=== PATIENT | male | born 1965 | race African-American/Black ===

== ENCOUNTER 2017-08-19 13:40 | Inpatient (IN) | payer OTHER ==
[2017-08-19 14:02] VITALS: BMI 33.4
--- NOTE | 2017-08-19 16:37 | HP ---
CIWA Score - CIWA Score Nausea/Vomitin (Nausea, Vomitted twice) Muscle Tremors: 4-Moderate,w/Arms Extend Anxiety: 4-Mod. Anxious/Guarded Agitation: 4-Moderately Restless Paroxysmal Sweats: 3 Orientation: 0-Oriented Tacttile Disturbances: 0-None Auditory Disturbances: 0-None Visual Disturbances: 0-None Headache: 4-Moderately Severe CIWA-Ar Total Score: 25 Admission ROS S - HPI Chief Complaint: Alcohol Withdrawal Allergies/Adverse Reactions: Allergies Allergy/AdvReac Type Severity Reaction Status Date / Time No Known Allergies Allergy Verified 08/19/17 17:03 History of Present Illness: 51 years old AA male with a long hx of alcohol dependence is admitted for alcohol detox. Patient has been in previous detox, last in 04/2015. Reports 5 years of sobriety. Exam Limitations: No Limitations - Ebola screening Have you traveled outside of the country in the last 21 days: No Have you had contact with anyone from an Ebola affected area: No Have you been sick,other than usual withdrawal symptoms: No Do you have a fever: No - Review of Systems Constitutional: Loss of Appetite, Night Sweats, Changes in sleep, Other (fatigue ) EENT: reports: No Symptoms Reported Respiratory: reports: No Symptoms reported Cardiac: reports: No Symptoms Reported GI: reports: Diarrhea, Nausea, Poor Appetite, Poor Fluid Intake, Vomiting : reports: No Symptoms Reported Musculoskeletal: reports: No Symptoms Reported Neuro: reports: Headache, Tingling, Tremors Endocrine: reports: Flushing, Increased Thirst Hematology: reports: No Symptoms Reported Psychiatric: reports: Orientated x3, Anxious Other Systems: Reviewed and Negative Patient History - Patient Medical History Hx Anemia: No Hx Asthma: No Hx Chronic Obstructive Pulmonary Disease (COPD): No Hx Cancer: No Hx Cardiac Disorders: No Hx Congestive Heart Failure: No Hx Hypertension: Yes (On meds ( lotrel)) Hx Hypercholesterolemia: Yes (On meds (Zocor)) HX Cerebrovascular Accident: No Hx Seizures: No Hx Dementia: No Hx Diabetes: No Hx Gastrointestinal Disorders: No Hx Liver Disease: No Hx Genitourinary Disorders: No Hx Sexually Transmitted Disorders: No Hx Renal Disease (ESRD): No Hx Thyroid Disease: No Hx Human Immunodeficiency Virus (HIV): No (Negative 2015) Hx Hepatitis C: No Hx Depression: No Hx Suicide Attempt: No Hx Bipolar Disorder: No Hx Schizophrenia: No - Patient Surgical History Past Surgical History: No - PPD History Previous Implant?: No (+ PPD, ) PPD to be Administered?: No - Reproductive History Patient is a Female of Child Bearing Age (11 -55 yrs old): No (MALE) - Smoking Cessation Smoking history: Current every day smoker Have you smoked in the past 12 months: Yes Aproximately how many cigarettes per day: 6 Hx Chewing Tobacco Use: No Initiated information on smoking cessation: Yes 'Breaking Loose' booklet given: 08/19/17 - Substance & Tx. History Hx Alcohol Use: Yes (BEER, VODKA) Hx Substance Use: Yes (COCAINE) Substance Use Type: Alcohol, Cocaine Hx Substance Use Treatment: Yes (LAST [facility]. 2015) Family Disease History - Family Disease History Family Disease History: Heart Disease: Grandparent (GRANDMOTHER STROKE, ), CA: Mother (BREAST CA, ), Brother (STOMACH CA, ), Respiratory : Father (COPD) Admission Physical Exam [facility] - Vital Signs Vital Signs: Vital Signs - 24 hr 08/19/17 14:00 Temperature 98.3 F Pulse Rate 70 Respiratory 18 Rate Blood Pressure 170/96 - Physical General Appearance: Yes: Moderate Distress, Tremorous, Anxious HEENTM: Yes: Normal ENT Inspection, Normal Voice, KYLE Respiratory: Yes: Lungs Clear, Normal Breath Sounds, No Respiratory Distress Neck: Yes: Supple Breast: Yes: Breast Exam Deferred Cardiology: Yes: Regular Rhythm, Regular Rate, S1, S2 Abdominal: Yes: Normal Bowel Sounds, Soft Musculoskeletal: Yes: Muscle Pain, Other (GENERALIZED BODY ACHES) Extremities: Yes: Normal Inspection, Normal Range of Motion, Other (TATOOS TO LEFT FOREARM, RIGHT SHOULDER) Neurological: Yes: Fully Oriented, Alert, Normal Mood/Affect, Normal Response Integumentary: Yes: Warm Lymphatic: Yes: Within Normal Limits - Diagnostic (1) Cocaine dependence, uncomplicated Current Visit: Yes Status: Acute (2) Alcohol dependence with uncomplicated withdrawal Current Visit: Yes Status: Acute (3) Hypertension Current Visit: Yes Status: Chronic (4) Hypercholesteremia Current Visit: Yes Status: Chronic (5) Nicotine dependence Current Visit: Yes Status: Acute Cleared for Admission [facility] - Detox or Rehab [facility] Level of Care: Medically Managed Detox Regimen/Protocol: Librium S Breath Alcohol Content Breath Alcohol Content: 0 Urine Drug Screen - Results Drug Screen Negative: No Urine Drug Screen Results: EDEN-Cocaine
[2017-08-19] MEDS ORDERED: IBUPROFEN 400 MG TABLET (FP) PO PRN (17:05)
[2017-08-19] MEDS ORDERED: ACETAMINOPHEN 325 MG TABLET (FP) PO PRN (17:05)
[2017-08-19] MEDS ORDERED: MAGNESIUM HYDROX 2400MG/30ML ORAL SUSPENSION 30 ML CUP PO PRN (17:05)
[2017-08-19] MEDS ORDERED: P-EPHED 60MG/TRIPROLIDI 2.5MG TABLET PO PRN (17:05)
[2017-08-19] MEDS ORDERED: MAGNESIUM CITRATE 300 ML BOTTLE PO PRN (17:05)
[2017-08-19] MEDS ORDERED: MAG HYDROX/AL HYDROX/SIMETH 30 ML UNIT-DOSE CUP PO PRN (17:05)
[2017-08-19] MEDS ORDERED: guaiFENesin/D-METHORPHAN HB 10 ML UNIT-DOSE CUPS PO PRN (17:05)
[2017-08-19] MEDS ORDERED: MENTHOL/PHENOL 1 EACH UD MM PRN (17:05)
[2017-08-19] MEDS ORDERED: LOPERAMIDE HCL 2 MG CAPSULE PO PRN (17:05)
[2017-08-19] MEDS ORDERED: PATIENT'S OWN MEDICATION (NON-FORMULARY) (Amlodipine Besylate/Benazepril [Lotrel 10-20 Mg PO SCH (17:15)
[2017-08-19] MEDS: chlordiazePOXIDE HCL 25 MG CAPSULE PO PRN (18:48)
[2017-08-19] MEDS ORDERED: amLODIPine BESYLATE 10 MG TABLET (FP) PO ONE (19:00)
[2017-08-19] MEDS ORDERED: LISINOPRIL 20 MG TABLET (FP) PO ONE (19:00)
[2017-08-19 21:27] LABS: URINE APPEARANCE CLEAR; URINE BILIRUBIN NEGATIVE (NEGATIVE); URINE BLOOD NEGATIVE (NEGATIVE); URINE COLOR YELLOW; URINE GLUCOSE (UA) NEGATIVE (NEGATIVE); URINE KETONE NEGATIVE (NEGATIVE); URINE NITRITE NEGATIVE (NEGATIVE); URINE PROTEIN NEGATIVE (NEGATIVE); URINE UROBILINOGEN NEGATIVE mg/dL (0.2-1.0)
[2017-08-19 22:22] LABS: URINE LEUK ESTERASE Negative (NEGATIVE)
[2017-08-19] MEDS: THIAMINE HCL 100 MG TABLET (FP) PO SCH (22:35)
[2017-08-19] MEDS: chlordiazePOXIDE HCL 25 MG CAPSULE PO SCH (22:35)
[2017-08-19] MEDS: diphenhydrAMINE HCL 50 MG CAPSULE PO PRN (22:35)
[2017-08-19] MEDS: ATORVASTATIN CA 20 MG TABLET (FP) PO SCH (22:37)
[2017-08-20] MEDS: chlordiazePOXIDE HCL 25 MG CAPSULE PO SCH ×4 (06:00→22:12)
[2017-08-20] MEDS: NICOTINE POLACRILEX 4 MG GUM BC PRN ×3 (09:31→17:41)
[2017-08-20 10:08] LABS: MCH 27.5 pg (25.7-33.7); MCHC 32.5 g/dl (32.0-35.9); MEAN CELL VOLUME 84.7 fl (80-96); MEAN PLT VOLUME 7.6 fl (7.5-11.1); PLATELET COUNT 285 K/MM3 (134-434); RDW 13.7 % (11.9-15.9); WHITE BLOOD COUNT 9.5 K/mm3 (4.0-10.0)
[2017-08-20 10:49] LABS: ALBUMIN 3.3 g/dl (3.4-5.0); ALK PHOS 64 U/L (45-117); ANION GAP 8 (8-16); BILIRUBIN,TOTAL 0.3 mg/dL (0.2-1.0); CALCIUM 8.9 mg/dL (8.5-10.1); CO2 29 mmol/L (21-32); CREATININE 1.1 mg/dL (0.7-1.3); GLUCOSE,RANDOM 89 mg/dL (74-106); SGOT/AST 15 U/L (15-37); SGPT/ALT 22 U/L (12-78); TOT PROT 6.6 g/dl (6.4-8.2)
[2017-08-20] MEDS: amLODIPine BESYLATE 10 MG TABLET (FP) PO SCH (11:02)
[2017-08-20] MEDS: LISINOPRIL 20 MG TABLET (FP) PO SCH (11:03)
[2017-08-20] MEDS: NICOTINE 14 MG/24 HOURS TOPICAL PATCH TD SCH (11:03)
[2017-08-20] MEDS: PRENATAL VITAMINS W/ FOLIC ACID TABLET (FP) PO SCH (11:07)
[2017-08-20] MEDS ORDERED: COLLOIDAL OATMEAL 1 BAR EACH TP PRN (11:23)
--- NOTE | 2017-08-20 11:59 | EKG ---
Test Reason : Blood Pressure : / mmHG Vent. Rate : 072 BPM Atrial Rate : 072 BPM P-R Int : 180 ms QRS Dur : 108 ms QT Int : 398 ms P-R-T Axes : 045 -23 007 degrees QTc Int : 435 ms NORMAL SINUS RHYTHM INCOMPLETE RIGHT BUNDLE BRANCH BLOCK MINIMAL VOLTAGE CRITERIA FOR LVH, MAY BE NORMAL VARIANT SEPTAL INFARCT , AGE UNDETERMINED ABNORMAL ECG NO PREVIOUS ECGS AVAILABLE Confirmed by CHRISTINA SOTO, YESENIA ([id number]) on 08/20/2017 11:58:49 AM Referred By: Confirmed By:YESENIA VASQUEZ MD
[2017-08-20] MEDS: IBUPROFEN 600 MG TABLET (FP) PO PRN (13:52)
[2017-08-20 14:03] LABS: SICKLE CELL SCREEN NEGATIVE (NEGATIVE)
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
[2017-08-20] MEDS: THIAMINE HCL 100 MG TABLET (FP) PO SCH (22:12)
[2017-08-20] MEDS: diphenhydrAMINE HCL 50 MG CAPSULE PO PRN (22:12)
[2017-08-20] MEDS: ATORVASTATIN CA 20 MG TABLET (FP) PO SCH (22:14)
[2017-08-21] MEDS: chlordiazePOXIDE HCL 25 MG CAPSULE PO SCH ×3 (05:50→17:48)
[2017-08-21] MEDS: chlordiazePOXIDE HCL 25 MG CAPSULE PO PRN ×2 (07:29→15:06)
--- NOTE | 2017-08-21 10:57 | PN ---
S CIWA - CIWA Score Nausea/Vomitin Muscle Tremors: 3 Anxiety: 3 Agitation: 2 Paroxysmal Sweats: 1-Minimal Palms Moist Orientation: 0-Oriented Tacttile Disturbances: 1-Very Mild Itch/Numbness Auditory Disturbances: 1-Very Mild Visual Disturbances: 0-None Headache: 2-Mild CIWA-Ar Total Score: 16 BHS Progress Note (SOAP) Subjective: alert,irritable,anxious,interrupted sleep,pain in the body and back Objective: 08/21/17 10:54 Vital Signs Temperature 98.2 F 08/21/17 09:56 Pulse Rate 83 08/21/17 09:56 Respiratory Rate 18 08/21/17 09:56 Blood Pressure 130/72 08/21/17 09:56 O2 Sat by Pulse Oximetry (%) 08/21/17 10:54 Laboratory Last Values WBC 9.5 K/mm3 (4.0-10.0) 08/20/17 07:00 RBC 5.38 M/mm3 (4.00-5.60) 08/20/17 07:00 Hgb 14.8 GM/dL (11.7-16.9) 08/20/17 07:00 Hct 45.5 % (35.4-49) 08/20/17 07:00 MCV 84.7 fl (80-96) 08/20/17 07:00 MCH 27.5 pg (25.7-33.7) 08/20/17 07:00 MCHC 32.5 g/dl (32.0-35.9) 08/20/17 07:00 RDW 13.7 % (11.9-15.9) 08/20/17 07:00 Plt Count 285 K/MM3 (134-434) 08/20/17 07:00 MPV 7.6 fl (7.5-11.1) 08/20/17 07:00 Sickle Cell Screen Negative (NEGATIVE) 08/20/17 07:00 Sodium 141 mmol/L (136-145) 08/20/17 07:00 Potassium 4.0 mmol/L (3.5-5.1) 08/20/17 07:00 Chloride 104 mmol/L (98-107) 08/20/17 07:00 Carbon Dioxide 29 mmol/L (21-32) 08/20/17 07:00 Anion Gap 8 (8-16) 08/20/17 07:00 BUN 16 mg/dL (7-18) 08/20/17 07:00 Creatinine 1.1 mg/dL (0.7-1.3) 08/20/17 07:00 Creat Clearance w eGFR > 60 (>60) 08/20/17 07:00 Random Glucose 89 mg/dL (74-106) 08/20/17 07:00 Calcium 8.9 mg/dL (8.5-10.1) 08/20/17 07:00 Total Bilirubin 0.3 mg/dL (0.2-1.0) 08/20/17 07:00 AST 15 U/L (15-37) 08/20/17 07:00 ALT 22 U/L (12-78) 08/20/17 07:00 Alkaline Phosphatase 64 U/L (45-117) 08/20/17 07:00 Total Protein 6.6 g/dl (6.4-8.2) 08/20/17 07:00 Albumin 3.3 g/dl (3.4-5.0) L 08/20/17 07:00 Urine Color Yellow 08/19/17 19:19 Urine Appearance Clear 08/19/17 19:19 Urine pH 7.0 (5.0-8.0) 08/19/17 19:19 Ur Specific [place] 1.015 (1.005-1.025) 08/19/17 19:19 Urine Protein Negative (NEGATIVE) 08/19/17 19:19 Urine Glucose (UA) Negative (NEGATIVE) 08/19/17 19:19 Urine Ketones Negative (NEGATIVE) 08/19/17 19:19 Urine Blood Negative (NEGATIVE) 08/19/17 19:19 Urine Nitrite Negative (NEGATIVE) 08/19/17 19:19 Urine Bilirubin Negative (NEGATIVE) 08/19/17 19:19 Urine Urobilinogen Negative mg/dL (0.2-1.0) 08/19/17 19:19 Ur Leukocyte Esterase Negative (NEGATIVE) 08/19/17 19:19 RPR Titer Nonreactive (NONREACTIVE) 08/20/17 07:00 chest xray on 08/20/17 left base scarring or atelectasis 08/21/17 10:56 Assessment: 08/21/17 10:56 withdrawal symptom Plan: continue detox
[2017-08-21] MEDS: PRENATAL VITAMINS W/ FOLIC ACID TABLET (FP) PO SCH ×2 (11:02→11:06)
[2017-08-21] MEDS: IBUPROFEN 600 MG TABLET (FP) PO PRN (11:03)
[2017-08-21] MEDS: NICOTINE 14 MG/24 HOURS TOPICAL PATCH TD SCH (11:03)
[2017-08-21] MEDS: LISINOPRIL 20 MG TABLET (FP) PO SCH (11:04)
[2017-08-21] MEDS: amLODIPine BESYLATE 10 MG TABLET (FP) PO SCH (11:04)
[2017-08-21] MEDS: hydrOXYzine PAMOATE 50 MG CAPSULE (FP) PO PRN (15:06)
[2017-08-21] MEDS: NICOTINE POLACRILEX 4 MG GUM BC PRN ×2 (15:06→17:49)
[2017-08-21] MEDS: chlordiazePOXIDE 5 MG CAPSULE PO SCH (23:12)
[2017-08-21] MEDS: ATORVASTATIN CA 20 MG TABLET (FP) PO SCH (23:12)
[2017-08-21] MEDS: THIAMINE HCL 100 MG TABLET (FP) PO SCH (23:13)
[2017-08-22] MEDS: chlordiazePOXIDE 5 MG CAPSULE PO SCH ×3 (08:15→17:13)
--- NOTE | 2017-08-22 10:21 | PN ---
BHS Progress Note (SOAP) Subjective: alert,irritable,anxious,interrupted sleep Objective: 08/22/17 10:20 Vital Signs Temperature 97.6 F 08/22/17 09:49 Pulse Rate 86 08/22/17 09:49 Respiratory Rate 18 08/22/17 09:49 Blood Pressure 123/68 08/22/17 09:49 O2 Sat by Pulse Oximetry (%) Assessment: 08/22/17 10:20 withdrawal symptom Plan: continue detox,discharge in am
[2017-08-22] MEDS: IBUPROFEN 600 MG TABLET (FP) PO PRN (10:53)
[2017-08-22] MEDS: LISINOPRIL 20 MG TABLET (FP) PO SCH (10:54)
[2017-08-22] MEDS: hydrOXYzine PAMOATE 50 MG CAPSULE (FP) PO PRN (10:54)
[2017-08-22] MEDS: PRENATAL VITAMINS W/ FOLIC ACID TABLET (FP) PO SCH (10:55)
[2017-08-22] MEDS: amLODIPine BESYLATE 10 MG TABLET (FP) PO SCH (10:55)
[2017-08-22] MEDS: NICOTINE 14 MG/24 HOURS TOPICAL PATCH TD SCH (10:55)
[2017-08-22] MEDS: NICOTINE POLACRILEX 4 MG GUM BC PRN ×3 (10:58→17:14)
[2017-08-22] MEDS: THIAMINE HCL 100 MG TABLET (FP) PO SCH (22:12)
[2017-08-22] MEDS: chlordiazePOXIDE HCL 10 MG CAPSULE PO SCH (22:13)
[2017-08-22] MEDS: diphenhydrAMINE HCL 50 MG CAPSULE PO PRN (22:13)
[2017-08-22] MEDS: ATORVASTATIN CA 20 MG TABLET (FP) PO SCH (22:14)
[2017-08-23] MEDS: chlordiazePOXIDE HCL 10 MG CAPSULE PO SCH (05:46)
--- NOTE | 2017-08-23 08:54 | DS ---
[facility] Detox Discharge Summary Admission Date: 08/19/17 Discharge Date: 08/23/17 - History Present History: Alcohol Dependence, Cocaine Dependence Pertinent Past History: See above - Physical Exam Results Vital Signs: Vital Signs Temperature 97.6 F 08/23/17 06:36 Pulse Rate 83 08/23/17 06:36 Respiratory Rate 18 08/23/17 06:36 Blood Pressure 154/79 08/23/17 06:36 O2 Sat by Pulse Oximetry (%) Pertinent Admission Physical Exam Findings: admitted in withdrawal detox completed medically stable dc today Laboratory Tests 08/19/17 08/20/17 08/20/17 19:19 07:00 07:00 WBC 9.5 RBC 5.38 Hgb 14.8 Hct 45.5 MCV 84.7 MCH 27.5 MCHC 32.5 RDW 13.7 Plt Count 285 MPV 7.6 Sickle Cell Screen Negative Sodium 141 Potassium 4.0 Chloride 104 Carbon Dioxide 29 Anion Gap 8 BUN 16 Creatinine 1.1 Creat Clearance w eGFR > 60 Random Glucose 89 Calcium 8.9 Total Bilirubin 0.3 AST 15 ALT 22 Alkaline Phosphatase 64 Total Protein 6.6 Albumin 3.3 L Urine Color Yellow Urine Appearance Clear Urine pH 7.0 Ur Specific [place] 1.015 Urine Protein Negative Urine Glucose (UA) Negative Urine Ketones Negative Urine Blood Negative Urine Nitrite Negative Urine Bilirubin Negative Urine Urobilinogen Negative Ur Leukocyte Esterase Negative RPR Titer 08/20/17 07:00 WBC RBC Hgb Hct MCV MCH MCHC RDW Plt Count MPV Sickle Cell Screen Sodium Potassium Chloride Carbon Dioxide Anion Gap BUN Creatinine Creat Clearance w eGFR Random Glucose Calcium Total Bilirubin AST ALT Alkaline Phosphatase Total Protein Albumin Urine Color Urine Appearance Urine pH Ur Specific [place] Urine Protein Urine Glucose (UA) Urine Ketones Urine Blood Urine Nitrite Urine Bilirubin Urine Urobilinogen Ur Leukocyte Esterase RPR Titer Nonreactive Vital Signs - 24 hr 08/22/17 08/22/17 08/22/17 09:49 14:30 18:08 Temperature 97.6 F 98.7 F 99.1 F Pulse Rate 86 107 H 106 H Respiratory 18 20 20 Rate Blood Pressure 123/68 145/82 158/77 08/22/17 08/23/17 08/23/17 23:49 00:30 03:30 Temperature 97.5 F L Pulse Rate 97 H Respiratory 20 18 17 Rate Blood Pressure 156/92 08/23/17 06:36 Temperature 97.6 F Pulse Rate 83 Respiratory 18 Rate Blood Pressure 154/79 - Medication Discharge Medications: Ambulatory Orders Amlodipine Besylate/Benazepril [Lotrel 10-20 mg Capsule] 1 cap PO DAILY Simvastatin [Zocor -] 40 mg PO HS 08/19/17 - Diagnosis (1) Alcohol dependence with uncomplicated withdrawal Current Visit: Yes Status: Acute (2) Cocaine dependence, uncomplicated Current Visit: Yes Status: Acute (3) Nicotine dependence Current Visit: Yes Status: Acute (4) Hypercholesteremia Current Visit: Yes Status: Chronic (5) Hypertension Current Visit: Yes Status: Chronic - AMA Did Patient Leave Against Medical Advice: No
[2017-08-23] MEDS: LISINOPRIL 20 MG TABLET (FP) PO SCH (09:34)
[2017-08-23] MEDS: PRENATAL VITAMINS W/ FOLIC ACID TABLET (FP) PO SCH (09:34)
[2017-08-23] MEDS: NICOTINE 14 MG/24 HOURS TOPICAL PATCH TD SCH (09:34)
[2017-08-23] MEDS: IBUPROFEN 600 MG TABLET (FP) PO PRN (09:35)
[2017-08-23] MEDS: amLODIPine BESYLATE 10 MG TABLET (FP) PO SCH (09:36)
[2017-08-23] MEDS: NICOTINE POLACRILEX 4 MG GUM BC PRN (09:38)
[2017-08-23 11:16] VITALS: BP 148/90; PULSE 86; TEMP 97.7
== END 2017-08-23 12:45 | disposition other institution (70) | DRG 897 ==
LOC: YASAS 13:40 → Y6N 17:31
PROVIDERS: ADMIT Internal Medicine; ATTEND Internal Medicine
PROC: HZ2ZZZZ Detoxification Services for Substance Abuse Treatment (ICD-10-PCS; principal; 2017-08-19)
DX: F10.230 Alcohol dependence with withdrawal, uncomplicated (principal); F14.20 Cocaine dependence, uncomplicated; F17.210 Nicotine dependence, cigarettes, uncomplicated; I10 Essential (primary) hypertension; E78.00 Pure hypercholesterolemia, unspecified
CPT/HCPCS: 36415; 71020-TC; 80053; 81003; 85027; 85660; 86593; 93005; 93010

== ENCOUNTER 2017-08-23 12:58 | Inpatient (IN) | payer OTHER ==
[2017-08-23] MEDS ORDERED: PNEUMOC 13-VAL CONJ-DIP CRM/PF 0.5 ML DISP.SYRIN IM ONE (14:46)
[2017-08-23 14:47] VITALS: BMI 35.1
[2017-08-23] MEDS ORDERED: MAGNESIUM HYDROX 2400MG/30ML ORAL SUSPENSION 30 ML CUP PO PRN (14:57)
[2017-08-23] MEDS ORDERED: MAGNESIUM CITRATE 300 ML BOTTLE PO PRN (14:57)
[2017-08-23] MEDS ORDERED: MENTHOL/PHENOL 1 EACH UD MM PRN (14:57)
[2017-08-23] MEDS ORDERED: guaiFENesin/D-METHORPHAN HB 10 ML UNIT-DOSE CUPS PO PRN (14:57)
[2017-08-23] MEDS ORDERED: ACETAMINOPHEN 325 MG TABLET (FP) PO PRN (14:57)
[2017-08-23] MEDS ORDERED: MAG HYDROX/AL HYDROX/SIMETH 30 ML UNIT-DOSE CUP PO PRN (14:57)
[2017-08-23] MEDS ORDERED: P-EPHED 60MG/TRIPROLIDI 2.5MG TABLET PO PRN (14:57)
[2017-08-23] MEDS ORDERED: IBUPROFEN 400 MG TABLET (FP) PO PRN (14:57)
[2017-08-23] MEDS ORDERED: LOPERAMIDE HCL 2 MG CAPSULE PO PRN (14:57)
--- NOTE | 2017-08-23 15:01 | HP ---
JUAN SOTO Rehab Assess/Revision - Admission History Ad[facility] to Rehab [facility] Date of Admission to Rehab: 08/23/17 - Vital signs Vital Signs: Vital Signs Period Temp Pulse Resp BP Sys/Guerra Pulse Ox Last 24 Hr 98.6 F-98.6 F 105-105 18-18 148-148/79-79 - Findings Detox History & Physical reviewed: Yes Concur with findings: Yes
[2017-08-23] MEDS: IBUPROFEN 400 MG TABLET (FP) PO PRN (15:53)
[2017-08-23] MEDS: NICOTINE POLACRILEX 4 MG GUM BUC PRN ×2 (15:54→21:16)
[2017-08-23] MEDS: ATORVASTATIN CA 20 MG TABLET (FP) PO SCH (21:13)
[2017-08-23] MEDS: THIAMINE HCL 100 MG TABLET (FP) PO SCH (21:14)
[2017-08-24] MEDS: amLODIPine BESYLATE 10 MG TABLET (FP) PO SCH (09:46)
[2017-08-24] MEDS: LISINOPRIL 20 MG TABLET (FP) PO SCH (09:46)
[2017-08-24] MEDS: PRENATAL VITAMINS W/ FOLIC ACID TABLET (FP) PO SCH (09:46)
[2017-08-24] MEDS: NICOTINE POLACRILEX 4 MG GUM BUC PRN ×3 (09:47→21:05)
[2017-08-24] MEDS ORDERED: FLU VACCINE QUAD 60 MCG/0.5 ML (MDV 17-18) IM ONE (12:00)
[2017-08-24] MEDS: THIAMINE HCL 100 MG TABLET (FP) PO SCH (21:05)
[2017-08-24] MEDS: diphenhydrAMINE HCL 50 MG CAPSULE PO PRN (21:05)
[2017-08-24] MEDS: ATORVASTATIN CA 20 MG TABLET (FP) PO SCH (21:06)
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
[2017-08-25] MEDS: amLODIPine BESYLATE 10 MG TABLET (FP) PO SCH (09:41)
[2017-08-25] MEDS: LISINOPRIL 20 MG TABLET (FP) PO SCH (09:42)
[2017-08-25] MEDS: PRENATAL VITAMINS W/ FOLIC ACID TABLET (FP) PO SCH (09:42)
[2017-08-25] MEDS: NICOTINE POLACRILEX 4 MG GUM BUC PRN ×2 (10:00→21:14)
[2017-08-25] MEDS ORDERED: PNEUMOCOCCAL 23 VACCINE 0.5 ML VIAL IM ONE (12:00)
[2017-08-25] MEDS: IBUPROFEN 400 MG TABLET (FP) PO PRN (16:59)
[2017-08-25] MEDS: THIAMINE HCL 100 MG TABLET (FP) PO SCH (21:14)
[2017-08-25] MEDS: diphenhydrAMINE HCL 50 MG CAPSULE PO PRN (21:14)
[2017-08-26] MEDS: LISINOPRIL 20 MG TABLET (FP) PO SCH (10:22)
[2017-08-26] MEDS: amLODIPine BESYLATE 10 MG TABLET (FP) PO SCH (10:22)
[2017-08-26] MEDS: PRENATAL VITAMINS W/ FOLIC ACID TABLET (FP) PO SCH (10:23)
[2017-08-26] MEDS: IBUPROFEN 400 MG TABLET (FP) PO PRN ×2 (10:25→17:36)
[2017-08-26] MEDS: NICOTINE POLACRILEX 4 MG GUM BUC PRN ×2 (10:26→17:36)
[2017-08-26] MEDS: THIAMINE HCL 100 MG TABLET (FP) PO SCH (21:06)
[2017-08-26] MEDS: diphenhydrAMINE HCL 50 MG CAPSULE PO PRN (21:06)
[2017-08-27] MEDS: amLODIPine BESYLATE 10 MG TABLET (FP) PO SCH (10:23)
[2017-08-27] MEDS: LISINOPRIL 20 MG TABLET (FP) PO SCH (10:23)
[2017-08-27] MEDS: PRENATAL VITAMINS W/ FOLIC ACID TABLET (FP) PO SCH (10:23)
[2017-08-27] MEDS: IBUPROFEN 400 MG TABLET (FP) PO PRN (10:24)
[2017-08-27] MEDS: NICOTINE POLACRILEX 4 MG GUM BUC PRN ×2 (10:25→21:11)
[2017-08-27] MEDS ORDERED: COLLOIDAL OATMEAL 1 BAR EACH TP PRN (14:21)
[2017-08-27] MEDS: diphenhydrAMINE HCL 50 MG CAPSULE PO PRN (21:11)
[2017-08-28] MEDS: LISINOPRIL 20 MG TABLET (FP) PO SCH (10:38)
[2017-08-28] MEDS: PRENATAL VITAMINS W/ FOLIC ACID TABLET (FP) PO SCH (10:38)
[2017-08-28] MEDS: amLODIPine BESYLATE 10 MG TABLET (FP) PO SCH (10:38)
[2017-08-28] MEDS: IBUPROFEN 400 MG TABLET (FP) PO PRN ×2 (10:40→16:52)
[2017-08-28] MEDS: NICOTINE POLACRILEX 4 MG GUM BUC PRN ×2 (10:41→21:22)
[2017-08-28] MEDS: diphenhydrAMINE HCL 50 MG CAPSULE PO PRN (21:22)
[2017-08-29] MEDS: IBUPROFEN 400 MG TABLET (FP) PO PRN (10:15)
[2017-08-29] MEDS: LISINOPRIL 20 MG TABLET (FP) PO SCH (10:16)
[2017-08-29] MEDS: NICOTINE POLACRILEX 4 MG GUM BUC PRN ×2 (10:16→21:19)
[2017-08-29] MEDS: PRENATAL VITAMINS W/ FOLIC ACID TABLET (FP) PO SCH (10:16)
[2017-08-29] MEDS: amLODIPine BESYLATE 10 MG TABLET (FP) PO SCH (10:16)
[2017-08-29] MEDS: diphenhydrAMINE HCL 50 MG CAPSULE PO PRN (21:17)
[2017-08-30] MEDS: IBUPROFEN 400 MG TABLET (FP) PO PRN ×2 (10:30→21:11)
[2017-08-30] MEDS: PRENATAL VITAMINS W/ FOLIC ACID TABLET (FP) PO SCH (10:31)
[2017-08-30] MEDS: amLODIPine BESYLATE 10 MG TABLET (FP) PO SCH (10:31)
[2017-08-30] MEDS: LISINOPRIL 20 MG TABLET (FP) PO SCH (10:31)
[2017-08-30] MEDS: diphenhydrAMINE HCL 50 MG CAPSULE PO PRN (21:13)
[2017-08-31] MEDS: amLODIPine BESYLATE 10 MG TABLET (FP) PO SCH (10:00)
[2017-08-31] MEDS: IBUPROFEN 400 MG TABLET (FP) PO PRN (10:00)
[2017-08-31] MEDS: LISINOPRIL 20 MG TABLET (FP) PO SCH (10:00)
[2017-08-31] MEDS: NICOTINE POLACRILEX 4 MG GUM BUC PRN ×2 (10:02→21:35)
[2017-08-31] MEDS: PRENATAL VITAMINS W/ FOLIC ACID TABLET (FP) PO SCH (10:24)
[2017-08-31] MEDS: diphenhydrAMINE HCL 50 MG CAPSULE PO PRN (21:34)
[2017-09-01] MEDS: PRENATAL VITAMINS W/ FOLIC ACID TABLET (FP) PO SCH (10:39)
[2017-09-01] MEDS: IBUPROFEN 400 MG TABLET (FP) PO PRN (10:39)
[2017-09-01] MEDS: amLODIPine BESYLATE 10 MG TABLET (FP) PO SCH (10:39)
[2017-09-01] MEDS: LISINOPRIL 20 MG TABLET (FP) PO SCH (10:39)
[2017-09-01] MEDS: NICOTINE POLACRILEX 4 MG GUM BUC PRN ×2 (10:40→21:38)
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
[2017-09-01] MEDS: diphenhydrAMINE HCL 50 MG CAPSULE PO PRN (21:38)
[2017-09-02 07:12] VITALS: BP 132/85; PULSE 71; TEMP 98.5
[2017-09-02] MEDS: amLODIPine BESYLATE 10 MG TABLET (FP) PO SCH (09:06)
[2017-09-02] MEDS: LISINOPRIL 20 MG TABLET (FP) PO SCH (09:06)
[2017-09-02] MEDS: NICOTINE POLACRILEX 4 MG GUM BUC PRN (09:08)
[2017-09-02] MEDS: PRENATAL VITAMINS W/ FOLIC ACID TABLET (FP) PO SCH (09:09)
== END 2017-09-02 09:35 | disposition home or self-care (01) | DRG 897 ==
LOC: YASAS 12:58 → Y3W 13:00
PROVIDERS: ADMIT Psychiatry & Neurology Psychiatry; ATTEND Psychiatry & Neurology Psychiatry
PROC: HZ2ZZZZ Detoxification Services for Substance Abuse Treatment (ICD-10-PCS; principal; 2017-08-23)
DX: F10.230 Alcohol dependence with withdrawal, uncomplicated (principal); F14.20 Cocaine dependence, uncomplicated; F19.282 Other psychoactive substance dependence with psychoactive substance-induced sleep disorder; F17.210 Nicotine dependence, cigarettes, uncomplicated; I10 Essential (primary) hypertension; E78.00 Pure hypercholesterolemia, unspecified; R76.11 Nonspecific reaction to tuberculin skin test without active tuberculosis
CPT/HCPCS: 90688; 90732; G0008; G0009

== ENCOUNTER 2025-06-10 16:37 | Inpatient (IN) | payer OTHER ==
[2025-06-10] MEDS ORDERED: NICOTINE POLACRILEX 2 MG GUM BUC PRN (19:21)
[2025-06-10] MEDS ORDERED: IBUPROFEN 600 MG TABLET (FP) PO PRN (19:21)
[2025-06-10] MEDS ORDERED: MAGNESIUM HYDROX 2400MG/30ML ORAL SUSPENSION 30 ML CUP PO PRN (19:21)
[2025-06-10] MEDS ORDERED: NALOXONE (NARCAN) HCL 4 MG/0.1 ML SPRAY NS PRN (19:21)
[2025-06-10] MEDS ORDERED: MAG HYDROX/AL HYDROX/SIMETH 30 ML UNIT-DOSE CUP PO PRN (19:21)
[2025-06-10] MEDS ORDERED: LOPERAMIDE HCL 2 MG CAPSULE PO PRN (19:21)
[2025-06-10] MEDS ORDERED: guaiFENesin 600 MG TABLET.ER (FP) PO PRN (19:21)
[2025-06-10] MEDS ORDERED: NICOTINE POLACRILEX 2 MG LOZENGE BC PRN (19:21)
[2025-06-10] MEDS ORDERED: BENZONATATE 200 MG CAPSULE PO PRN (19:21)
[2025-06-10] MEDS ORDERED: NALOXONE HCL 0.4 MG/ML VIAL IVPUSH PRN (19:21)
[2025-06-10] MEDS ORDERED: POLYETHYLENE GLYCOL (HEALTHYLAX) 3350 17 GM PACKET PO PRN (19:21)
[2025-06-10] MEDS ORDERED: BENZOCAINE/MENTHOL (CHLORASEPTIC ) LOZENGE MM PRN (19:21)
[2025-06-10] MEDS ORDERED: PATIENT'S OWN MEDICATION (NON-FORMULARY) (Simvastatin 40 MG Tablet) PO SCH (22:00)
[2025-06-10] MEDS: MELATONIN 5 MG TABLETS PO SCH (23:59)
[2025-06-10] MEDS: ATORVASTATIN CA 20 MG TABLET (FP) PO SCH (23:59)
[2025-06-10] MEDS: THIAMINE 100 MG TABLET PO SCH (23:59)
[2025-06-11] MEDS: PRENATAL VITAMINS W/ FOLIC ACID TABLET (FP) PO SCH (09:35)
[2025-06-11] MEDS: amLODIPine BESYLATE 10 MG TABLET (FP) PO SCH (09:35)
[2025-06-11] MEDS: LISINOPRIL 20 MG TABLET PO SCH (09:35)
[2025-06-11] MEDS ORDERED: PATIENT'S OWN MEDICATION (NON-FORMULARY) (Amlodipine Besylate/Benazepril [Lotrel 10-20 Mg PO SCH (10:00)
[2025-06-12] MEDS: ACETAMINOPHEN 325 MG TABLET (FP) PO PRN (09:56)
[2025-06-13] MEDS: METHOCARBAMOL 500 MG TABLET PO PRN (10:06)
[2025-06-13] MEDS: IBUPROFEN 400 MG TABLET (FP) PO PRN (21:34)
[2025-06-14] MEDS: ACETAMINOPHEN 325 MG TABLET (FP) PO PRN (09:51)
[2025-06-14] MEDS ORDERED: PRENATAL VITAMINS W/ FOLIC ACID TABLET (FP) PO PRN (11:16)
[2025-06-14 11:40] LABS: MCHC 30.5 g/dl (32.3-36.5); MEAN CELL VOLUME 87.6 fl (79.0-92.2); MEAN PLT VOLUME 8.9 fl (9.4-12.4); RDW 14.5 % (12.2-16.1)
[2025-06-15 08:59] LABS: ABSOLUTE IMMATURE GRANULOCYTES 0.67 x10^3/uL (0.0-0.031); BASOPHILS # 0.12 x10^3/uL (0.01-0.08); EOSINOPHIL % 3.0 % (0.8-7.0); EOSINOPHILS # 0.30 x10^3/uL (0.04-0.54); MCHC 31.3 g/dl (32.3-36.5); MEAN CELL VOLUME 86.1 fl (79.0-92.2); MEAN PLT VOLUME 9.0 fl (9.4-12.4); MONOCYTE # 0.86 x10^3/uL (0.30-0.82); MONOCYTE % 8.5 % (5.3-12.2); RDW 14.6 % (12.2-16.1)
[2025-06-15] MEDS: METHOCARBAMOL 500 MG TABLET PO PRN (21:11)
[2025-06-16] MEDS: ACETAMINOPHEN 325 MG TABLET (FP) PO PRN (09:49)
[2025-06-17] MEDS: diphenhydrAMINE HCL 25 MG CAPSULE (FP) PO PRN (21:10)
[2025-06-17] MEDS: MELATONIN 5 MG TABLETS PO SCH (21:34)
[2025-06-20] MEDS: IBUPROFEN 400 MG TABLET (FP) PO PRN ×2 (10:18→21:18)
[2025-06-21] MEDS: METHOCARBAMOL 500 MG TABLET PO PRN (10:17)
[2025-06-21] MEDS: IBUPROFEN 400 MG TABLET (FP) PO PRN (10:17)
[2025-07-06 07:21] VITALS: BP 129/77; PULSE 72; RESP 18; TEMP 97.4
== END 2025-07-06 09:22 | disposition home or self-care (01) | DRG 895 ==
LOC: YASAS 16:37 → Y3E 16:51
PROVIDERS: ADMIT Psychiatry & Neurology Pain Medicine; ATTEND Psychiatry & Neurology Pain Medicine
PROC: HZ42ZZZ Group Counseling for Substance Abuse Treatment, Cognitive-Behavioral (ICD-10-PCS; principal; 2025-06-10)
DX: F10.20 Alcohol dependence, uncomplicated (principal); F14.20 Cocaine dependence, uncomplicated; F13.20 Sedative, hypnotic or anxiolytic dependence, uncomplicated; F19.282 Other psychoactive substance dependence with psychoactive substance-induced sleep disorder; Z59.00 Homelessness unspecified; G47.00 Insomnia, unspecified; E78.00 Pure hypercholesterolemia, unspecified; I10 Essential (primary) hypertension; M54.50 Low back pain, unspecified; G89.29 Other chronic pain; R60.0 Localized edema; Z20.2 Contact with and (suspected) exposure to infections with a predominantly sexual mode of transmission; Z87.891 Personal history of nicotine dependence
CPT/HCPCS: 36415; 85025